=== PATIENT | male | born 1955 | race Caucasian/White ===

== ENCOUNTER 2020-12-13 11:02 | Emergency (ER) | payer MEDICARE ==
[~2020-12-13] VITALS: Ht 172.7 cm; Wt 68.0 kg
[2020-12-13] MEDS ORDERED: LIDOCAINE 1%/EPI 1:100,000 10 ML VIAL IJ ONE (11:30)
[2020-12-13] MEDS ORDERED: ACETAMINOPHEN 325MG TABLET PO ONE (11:30)
[2020-12-13] MEDS ORDERED: BACITRACIN ZINC OINT UDPKT TOP ONE (11:30)
[2020-12-13] MEDS ORDERED: LIDOCAINE HCL/EPINEPHRINE 1%-EPI 1:100,000 50 ML VIAL INFIL ONE (12:00)
[2020-12-13] MEDS ORDERED: CEPH500C2 PO (12:25)
[2020-12-13] MEDS ORDERED: SULF1TAB48 MT (12:25)
[2020-12-13 12:33] VITALS: BP 112/78
== END 2020-12-13 12:33 | disposition home or self-care (01) ==
LOC: ER 11:41
DX: L02.411 Cutaneous abscess of right axilla (principal); L03.111 Cellulitis of right axilla; Z79.899 Other long term (current) drug therapy
CPT/HCPCS: 10060; 99283; J3490